=== PATIENT | male | born 1990 | race Native Hawaiian/Other Pacific Islander ===

== ENCOUNTER 2016-10-27 16:03 | Inpatient (IN) | payer OTHER ==
[~2016-10-27] VITALS: Ht 188 cm; Wt 64.5 kg
[2016-10-27 16:05] VITALS: BP 120/75; PULSE 87; RESP 18; O2SAT 100
[2016-10-27] MEDS ORDERED: SODIUM CHLOR 0.9% 1000 ML INJ 1,000 ML IV ONE ×3 (16:15→18:00)
[2016-10-27] MEDS ORDERED: SODIUM CHLORIDE 0.9% FLUSH 10 ML FLUSH IVF PRN (16:15)
--- NOTE | 2016-10-27 16:30 | PD ---
HPI Chief Complaint: Altered Mental Status Time Seen by Provider: 16:09 Travel History International Travel<30 days: No Contact w/Intl Traveler<30days: No Traveled to known affect area: No History of Present Illness HPI 26-year-old male came to the emergency room with history of feeling not good and asking his friends to call 911. Patient says that he is here on a spring break and last night he partied and drank a lot of alcohol. This morning when he woke up he was not feeling good and felt these painful contractions all over his body. As per EMS he was tachycardic rate and having carpopedal spasms from what it looked like. He was awake and answering questions appropriately. EMS requested on the radio to give him a milligram of IV Ativan which I had approved. When patient arrived he was little groggy but painful contractions had stopped. He was answering questions appropriately. He denied doing any drugs. [facility] Past Medical History Narrative Medical List of his past medical, surgical, social and family history was reviewed from the nursing note. Tetanus Vaccination: Never Vaccinated Influenza Vaccination: No Past Surgical History Surgical History: No Previous Surgery Social History Alcohol Use: Yes Tobacco Use: No Substance Use: No Allergies-Medications (Allergen,Severity, Reaction): Coded Allergies: No Known Allergies (Unverified , 10/27/16) Comments No known drug allergies. Narrative Medication Awaiting for the nurse to do minute reconciliation. Review of Systems Except as stated in HPI: all other systems reviewed are Neg Physical Exam Narrative GENERAL: Groggy, wakes up on calling his name, answering questions appropriately , no obvious distress SKIN: Warm and dry. HEAD: Atraumatic. Normocephalic. EYES: Pupils equal and round. No scleral icterus. No injection or drainage. ENT: No nasal bleeding or discharge. Mucous membranes dry. NECK: Trachea midline. No JVD. CARDIOVASCULAR: Regular rate and rhythm. No murmur appreciated. RESPIRATORY: No accessory muscle use. Clear to auscultation. Breath sounds equal bilaterally. GASTROINTESTINAL: Abdomen soft, non-tender, nondistended. Hepatic and splenic margins not palpable. MUSCULOSKELETAL: No obvious deformities. No clubbing. No cyanosis. No edema. NEUROLOGICAL: Awake and alert. No obvious cranial nerve deficits. Motor grossly within normal limits. Normal speech. PSYCHIATRIC: Appropriate mood and affect; insight and judgment normal. Data Data Last Documented VS Orders Electrocardiogram (10/27/16 16:09) Ammonia (10/27/16 16:09) Complete Blood Count With Diff (10/27/16 16:09) Comprehensive Metabolic Panel (10/27/16 16:09) Creatine Kinase (Cpk) (10/27/16 16:09) Prothrombin Time / Inr (Pt) (10/27/16 16:09) Act Partial Throm Time (Ptt) (10/27/16 16:09) Troponin I (10/27/16 16:09) Thyroid Stimulating Hormone (10/27/16 16:09) Lactic Acid Sepsis Protocol (10/27/16 16:09) Urinalysis - C+S If Indicated (10/27/16 16:09) Blood Culture (10/27/16 16:09) Chest, Single Ap (10/27/16 16:09) Ct Brain W/O Iv Contrast(Rout) (10/27/16 16:09) Blood Glucose (10/27/16 16:09) Ecg Monitoring (10/27/16 16:09) Iv Access Insert/Monitor (10/27/16 16:09) Oximetry (10/27/16 16:09) Sodium Chloride 0.9% Flush (Ns Flush) (10/27/16 16:15) Drug Screen, Random Urine (10/27/16 16:09) Alcohol (Ethanol) (10/27/16 16:09) Sodium Chlor 0.9% 1000 Ml Inj (Ns 1000 M (10/27/16 16:15) CKMB (10/27/16 16:36) CKMB% (10/27/16 16:36) Sodium Chlor 0.9% 1000 Ml Inj (Ns 1000 M (10/27/16 18:00) Levetiracetam 1000 Mg Inj (Keppra 1000 M (10/27/16 18:00) Sodium Chlor 0.9% 1000 Ml Inj (Ns 1000 M (10/27/16 18:00) Admit Order (Ed Use Only) (10/27/16 18:15) Admit To Inpatient (10/27/16 ) Vital Signs (Adult) Q4H (10/27/16 18:14) Neuro Checks Q4H (10/27/16 18:14) Activity Oob With Assistance (10/27/16 18:14) Diet Regular Basic (10/27/16 Dinner) Sodium Chlor 0.9% 1000 Ml Inj (Ns 1000 M (10/27/16 18:14) Sodium Chloride 0.9% Flush (Ns Flush) (10/27/16 18:15) Sodium Chloride 0.9% Flush (Ns Flush) (10/27/16 21:00) Acetaminophen (Tylenol) (10/27/16 18:15) Ondansetron Inj (Zofran Inj) (10/27/16 18:15) Magnesium Hydroxide Liq (Milk Of Magnesi (10/27/16 18:15) Temazepam (Restoril) (10/27/16 21:00) Basic Metabolic Panel (Bmp) (10/28/16 06:00) Complete Blood Count With Diff (10/28/16 06:00) Scd Bilateral/Knee High KENNETH.BID (10/27/16 18:14) Naloxone Inj (Narcan Inj) (10/27/16 18:15) Inpatient Certification (10/27/16 ) Consult Neurology (10/27/16 ) Eeg Study (10/27/16 ) Labs MDM Medical Decision Making Medical Screen Exam Complete: Yes Emergency Medical Condition: Yes Medical Record Reviewed: Yes Interpretation(s) Twelve-lead EKG was reviewed by me. Normal sinus rhythm, normal axis, nonspecific ST-T wave changes. Heart rate of 82 bpm. Differential Diagnosis Dehydration, electrolyte abnormality, alcohol intoxication Narrative Course 5:39 PM awaiting for the blood test results. Patient was given 1 L of IV fluid bolus. Chest x-ray and CAT scan of his head are within normal limits. His friends are here and they witnessed this and were concerned that he had a seizure. 5:58 PM blood test results are back. Patient's CPK and lactic acid are elevated. There is a good chance based on these test results he may have had a seizure. The nurse was told by his friends were in the room that he had another brief episode of similar shaking. I have ordered another liter of IV fluid bolus and 1 g of Keppra IV. I would like to admit this patient for neurology consult and EEG. Critical Care Narrative Aggregate critical care time was 30 minutes. Time to perform other separately billable procedures was not included in the critical care time. My time did not include minutes spent treating any other patients simultaneously or on activities that did not directly contribute to the patient's treatment. The services I provided to this patient were to treat and/or prevent clinically significant deterioration that could result in: New-onset seizure, rhabdomyolysis, altered mental status I provided critical care services requiring my management, as noted below: Chart data review, documentation time, medication orders and management, vital sign assessments/reviewing monitor data, ordering and reviewing lab tests, ordering and interpreting/reviewing x-rays and diagnostic studies, care of the patient and discussion of the patient with the admitting physicians. Procedures EKG Prior to Arrival: No Diagnosis Primary Impression: New onset seizure Additional Impressions: Rhabdomyolysis Qualified Code: M62.82 - Non-traumatic rhabdomyolysis Altered mental status Qualified Code: R40.0 - Somnolence Admitting Information Admitting Physician Requests: Admit Adriel Carroll MD Oct 27, 2016 16:30 Anion Gap 7 MEQ/L Blood Urea Nitrogen 13 MG/DL Creatinine 0.90 MG/DL Estimat Glomerular Filtration 102 ML/MIN Rate Random Glucose 124 MG/DL Lactic Acid Level 2.2 mmol/L Calcium Level 7.7 MG/DL Total Bilirubin 0.4 MG/DL Aspartate Amino Transf 56 U/L (AST/SGOT) Alanine Aminotransferase 36 U/L (ALT/SGPT) Alkaline Phosphatase 126 U/L Total Creatine Kinase 1975 U/L Creatine Kinase MB 10.3 NG/ML Creatine Kinase MB % 0.5 % Troponin I LESS THAN 0.02 NG/ML Total Protein 6.5 GM/DL Albumin 3.6 GM/DL Thyroid Stimulating Hormone 0.912 uIU/ML 3rd Gen Ethyl Alcohol Level LESS THAN 3 MG/DL Ammonia 83 MCMOL/L Urine Color YELLOW Urine Turbidity CLEAR Urine pH 6.0 Urine Specific [place] 1.023 Urine Protein TRACE mg/dL Urine Glucose (UA) 1000 mg/dL Urine Ketones 10 mg/dL Urine Occult Blood NEG Urine Nitrite NEG Urine Bilirubin NEG Urine Urobilinogen 2.0 MG/DL Urine Leukocyte Esterase NEG Urine RBC 1 /hpf Urine WBC 2 /hpf Urine Mucus FEW /lpf Microscopic Urinalysis Comment CATH-CULT NOT IND Urine Opiates Screen NEG Urine Barbiturates Screen NEG Urine Amphetamines Screen NEG Urine Benzodiazepines Screen NEG Urine Cocaine Screen NEG Urine Cannabinoids Screen NEG MDM Medical Decision Making Medical Screen Exam Complete: Yes Emergency Medical Condition: Yes Medical Record Reviewed: Yes Interpretation(s) Twelve-lead EKG was reviewed by me. Normal sinus rhythm, normal axis, nonspecific ST-T wave changes. Heart rate of 82 bpm. Differential Diagnosis Dehydration, electrolyte abnormality, alcohol intoxication Narrative Course 5:39 PM awaiting for the blood test results. Patient was given 1 L of IV fluid bolus. Chest x-ray and CAT scan of his head are within normal limits. His friends are here and they witnessed this and were concerned that he had a seizure. 5:58 PM blood test results are back. Patient's CPK and lactic acid are elevated. There is a good chance based on these test results he may have had a seizure. The nurse was told by his friends were in the room that he had another brief episode of similar shaking. I have ordered another liter of IV fluid bolus and 1 g of Keppra IV. I would like to admit this patient for neurology consult and EEG. Critical Care Narrative Aggregate critical care time was 30 minutes. Time to perform other separately billable procedures was not included in the critical care time. My time did not include minutes spent treating any other patients simultaneously or on activities that did not directly contribute to the patient's treatment. The services I provided to this patient were to treat and/or prevent clinically significant deterioration that could result in: New-onset seizure, rhabdomyolysis, altered mental status I provided critical care services requiring my management, as noted below: Chart data review, documentation time, medication orders and management, vital sign assessments/reviewing monitor data, ordering and reviewing lab tests, ordering and interpreting/reviewing x-rays and diagnostic studies, care of the patient and discussion of the patient with the admitting physicians. Procedures EKG Prior to Arrival: No Diagnosis Primary Impression: New onset seizure Additional Impressions: Rhabdomyolysis Qualified Code: M62.82 - Non-traumatic rhabdomyolysis Altered mental status Qualified Code: R40.0 - Somnolence Admitting Information Admitting Physician Requests: it Adriel Carroll MD Oct 27, 2016 16:30
--- NOTE | 2016-10-27 16:38 | RADRPT ---
EXAM DATE/TIME: 10/27/2016 16:10 [facility] COMPARISON: No previous studies available for comparison. INDICATIONS : Syncope. MEDICAL HISTORY : None. SURGICAL HISTORY : None. ENCOUNTER: Initial ACUITY: 1 day PAIN SCORE: 0/10 LOCATION: Bilateral upper chest FINDINGS: A single view of the chest demonstrates the lungs to be symmetrically aerated without evidence of mas s, infiltrate or effusion. The cardiomediastinal contours are unremarkable. Osseous structures are intact. CONCLUSION: No acute cardiopulmonary process. Carlos Eduardo Bose MD on October 27, 2016 at 16:36 Board Certified Radiologist. This report was verified electronically.
--- NOTE | 2016-10-27 16:47 | RADRPT ---
EXAM DATE/TIME: 10/27/2016 16:41 [facility] COMPARISON: No previous studies available for comparison. INDICATIONS : Altered mental status. RADIATION DOSE: 33.87 CTDIvol (mGy) MEDICAL HISTORY : Non-responsive. SURGICAL HISTORY : Non-responsive. ENCOUNTER: Initial ACUITY: 1 day PAIN SCALE: Non-responsive LOCATION: cranial TECHNIQUE: Multiple contiguous axial images were obtained of the head. Using automated exposure control and adj ustment of the mA and/or kV according to patient size, radiation dose was kept as low as reasonably a chievable to obtain optimal diagnostic quality images. FINDINGS: CEREBRUM: The ventricles are normal for age. No evidence of midline shift, mass lesion, hemorrhage or acute in farction. No extra-axial fluid collections are seen. POSTERIOR FOSSA: The cerebellum and brainstem are intact. The 4th ventricle is midline. The cerebellopontine angle i s unremarkable. EXTRACRANIAL: The visualized portion of the orbits is intact. SKULL: The calvaria is intact. No evidence of skull fracture. CONCLUSION: Normal examination. Ezra Meehan MD on October 27, 2016 at 16:45 Board Certified Radiologist. This report was verified electronically.
[2016-10-27 17:05] LABS: AUTOMATED NEUTROPHIL # 7.8 TH/MM3 (1.8-7.7); BASOPHIL % 0.4 % (0.0-2.0); EOSINOPHIL % 0.4 % (0.0-4.0); HEMATOCRIT 41.5 % (39.0-51.0); HEMO FLAGS DIFF FINAL; LYMPH % 9.3 % (9.0-44.0); LYMPHOCYTE # 0.9 TH/MM3 (1.0-4.8); MEAN CELL VOLUME 88.4 FL (80.0-100.0); MEAN CORPUSCULAR HEMOGLOBIN 31.2 PG (27.0-34.0); MEAN CORPUSCULAR HGB CONC 35.3 % (32.0-36.0); MONO % 6.9 % (0.0-8.0); PLATELET COUNT 211 TH/MM3 (150-450); RED BLOOD COUNT 4.69 MIL/MM3 (4.50-5.90); RED CELL DISTRIBUTION WIDTH 13.9 % (11.6-17.2); WHITE BLOOD COUNT 9.4 TH/MM3 (4.0-11.0)
[2016-10-27 17:25] LABS: APTT (PATIENT) 25.8 SEC (24.3-30.1); PROTHROMBIN TIME - PATIENT 10.9 SEC (9.8-11.6)
[2016-10-27 17:26] LABS: ANION GAP 7 MEQ/L (5-15); AST (GOT) 56 U/L (15-37); BICARBONATE 29.1 MEQ/L (21.0-32.0); BLOOD UREA NITROGEN 13 MG/DL (7-18); CHLORIDE 103 MEQ/L (98-107); GLOMERULAR FILTRATION RATE 102 ML/MIN (>89); SODIUM (NA) 139 MEQ/L (136-145)
[2016-10-27 17:39] LABS: AMPHETAMINE, URINE NEG (NEG); BARBITURATES, URINE NEG (NEG); COCAINE, URINE NEG (NEG)
[2016-10-27 17:41] LABS: ALKALINE PHOSPHATASE 126 U/L (45-117); ALT (GPT) 36 U/L (12-78); CREATINE KINASE 1975 U/L (39-308); TOTAL BILIRUBIN ADULT 0.4 MG/DL (0.2-1.0)
[2016-10-27 17:42] LABS: BLOOD, URINE NEG (NEG); GLUCOSE,URINE 1000 mg/dL (NEG); KETONE, URINE 10 mg/dL (NEG); MUCUS URINE FEW /lpf (OCC); NITRITE,URINE NEG (NEG); URINE COLOR YELLOW (YELLW/STRAW)
[2016-10-27 17:43] LABS: COMMENT (UR) CATH-CULT NOT IND; CULTURE IF INDICATED CATH CULTURE NOT IND
[2016-10-27 17:55] LABS: CKMB 10.3 NG/ML (0.5-3.6)
[2016-10-27] MEDS ORDERED: levETIRAcetam 1000 MG INJ 100 ML IV ONE (18:00)
[2016-10-27] MEDS: SODIUM CHLOR 0.9% 1000 ML INJ 1,000 ML IV SCH (18:14)
[2016-10-27] MEDS ORDERED: NALOXONE HCL 0.4 MG/ML AMP IV PRN (18:15)
[2016-10-27] MEDS ORDERED: ONDANSETRON HCL 4 MG/2 ML VIAL IVP PRN (18:15)
[2016-10-27] MEDS ORDERED: MAGNESIUM HYDROXIDE SUSP 30 ML CUP PO PRN (18:15)
[2016-10-27] MEDS ORDERED: ACETAMINOPHEN 325 MG TAB PO PRN (18:15)
[2016-10-27] MEDS ORDERED: SODIUM CHLORIDE 0.9% FLUSH 10 ML FLUSH IV FLUSH PRN (18:15)
[2016-10-27] MEDS ORDERED: LORazepam 2 MG/ML VIAL IV PUSH PRN ×2 (18:30)
[2016-10-27 18:53] LABS: LACTIC ACID GHOST NOT REPORTABLE
[2016-10-27] MEDS: FOLIC ACID 1 MG TAB PO SCH (19:20)
[2016-10-27 19:26] VITALS: BP 120/84; PULSE 82; RESP 18; O2SAT 99
[2016-10-27] MEDS: THIAMINE INJ 100 MG in SODIUM CHLORIDE 0.9% INJ 100 ML IV SCH (20:07)
[2016-10-27 20:25] VITALS: BP 128/78; PULSE 107; RESP 16; O2SAT 100
[2016-10-27] MEDS: SODIUM CHLORIDE 0.9% FLUSH 10 ML FLUSH IV FLUSH SCH (20:54)
[2016-10-27] MEDS ORDERED: TEMAZEPAM 15 MG CAP PO PRN (21:00)
[2016-10-27 21:30] VITALS: BP 110/64; PULSE 81; RESP 20; TEMP 97.1; O2SAT 100
--- NOTE | 2016-10-27 22:32 | HHI.HP ---
[facility] Unknown Admission Diagnosis new-onset seizure, rhabdomyolysis, altered mental status Diagnoses: (1) New onset seizure (2) Rhabdomyolysis Chief Complaint: Seizure activity Travel History International Travel<30 Days: No Contact w/Intl Traveler <30 Da: No Traveled to Known Affected Are: No History of Present Illness Mr. Gandhi is a 26 year-old male with no significant medical history who presented to the ER after experiencing painful body contractions and asking friends to call 911. He is here for spring break from college in [place], [place] and has been drinking a lot of alcohol. He had muscle spasms while en route and Ativan 1 mg IV was given enroute to ER. There has been seizure activity in ER and the patient is admitted. The patient is seen in his hospital room. He is alert and interactive. He says he has been drinking heavily every day since he arrived in [place] about one week ago. He said he ended up in the hospital on 10/26/2016 overnight after drinking heavily with friends (?[facility] He was discharged the next morning and went home and ate breakfast. After breakfast, he started shaking and was stiff. He told his friend called the ambulance and they did. He admits to binge drinking while here in [facility] and also drinking regularly when he is in school because he states it is very hard to get alcohol where he is originally from in [place]. He says he is enjoying the freedom to drink here in the before returning home. He denies any recent fever, chills, breathing problems, chest pain, abdominal pain, diarrhea, nausea, vomiting, black or tarry stools. He denies any significant medical history or prior surgeries. He denies any family history of medical problems. Review of Systems Except as stated in HPI: all other systems reviewed are Neg Past Family Social History Past Medical History Denies . Past Surgical History Denies . Reported Medications Denies taking any home medications . Allergies: Coded Allergies: No Known Allergies (Unverified , 10/27/16) Active Ordered Medications Current Medications Sodium Chloride 2 ml 2 ml UNSCH PRN IVF FLUSH AFTER USING IV ACCESS; Start at 16:15 Sodium Chloride 1,000 ml @ 999 mls/hr BOLUS ONCE IV Last administered on 10/27 17:18; Start 10/27/16 at 16:15; Stop 10/27/16 at 17:15; Status DC Sodium Chloride 1,000 ml @ 999 mls/hr BOLUS ONCE IV Last administered on 10/27 20:07; Start 10/27/16 at 18:00; Stop 10/27/16 at 19:00; Status DC Levetriacetam 100 ml @ 400 mls/hr BOLUS ONCE IV Last administered on 19:35; Start 10/27/16 at 18:00; Stop 10/27/16 at 18:14; Status DC Sodium Chloride 1,000 ml @ 999 mls/hr BOLUS ONCE IV Last administered on 10/27 19:20; Start 10/27/16 at 18:00; Stop 10/27/16 at 19:00; Status DC Sodium Chloride (NS 1000 ml Inj) 1,000 ml @ 200 mls/hr Q5H IV ; Start 10/27/16 at 18:14 Sodium Chloride (NS Flush) 2 ml UNSCH PRN IV FLUSH FLUSH AFTER USING IV ACCESS ; Start 10/27/16 at 18:15 Sodium Chloride (NS Flush) 2 ml BID IV FLUSH ; Start 10/27/16 at 21:00 Acetaminophen (Tylenol) 650 mg Q4H PRN PO Fever, headache, Pain 1-4; Start at 18:15 Ondansetron HCl (Zofran Inj) 4 mg Q6H PRN IVP NAUSEA OR VOMITING; Start at 18:15 Magnesium Hydroxide (Milk Of Magnesia Liq) 30 ml Q12H PRN PO CONSTIPATION; Start 10/27/16 at 18:15 Temazepam (Restoril) 15 mg HS PRN PO INSOMNIA; Start 10/27/16 at 21:00 Naloxone HCl (Narcan Inj) 0.4 mg UNSCH PRN IV SEE LABEL COMMENTS; Start at 18:15 Lorazepam (Ativan Inj) 1 mg Q15M PRN IV PUSH Seizure, severe withdrawal; Start 10/27/16 at 18:30 Lorazepam (Ativan Inj) 1 mg Q4H PRN IV PUSH withdrawal; Start 10/27/16 at 18:30 Folic Acid 1 mg 1 mg DAILY PO Last administered on 10/27/16 19:20; Start 10/27 at 18:30 Thiamine HCl/ Sodium Chloride (Thiamine Inj/NS Inj) 101 ml @ 101 mls/hr DAILY IV Last administered on 10/27/16 20:07; Start 10/27/16 at 20:00; Stop at 19:59 . Family History Denies any significant family medical illnesses . Social History Tobacco: Denies Alcohol: See history of present illness Illicit Drugs: Denies . Physical Exam Vital Signs Vital Signs Date Time Temp Pulse Resp B/P Pulse Ox O2 Delivery O2 Flow Rate FiO2 10/27/16 21:30 97.1 81 20 110/64 100 10/27/16 20:25 107 16 128/78 100 Nasal Cannula 2 10/27/16 19:26 82 18 120/84 99 Room Air 10/27/16 16:05 87 18 120/75 100 Physical Exam GENERAL: This is a thin young male patient, in no apparent distress. Ammonia odor detectable. SKIN: No rashes, ecchymoses or lesions. Cool and dry. HEAD: Atraumatic. Normocephalic. EYES: No scleral icterus. No injection or drainage. ENT: Nose without bleeding, purulent drainage. NECK: Trachea midline. No JVD or lymphadenopathy. CARDIOVASCULAR: Regular rate and rhythm without murmurs, gallops, or rubs. RESPIRATORY: Clear to auscultation. Breath sounds equal bilaterally. No wheezes , rales, or rhonchi. GASTROINTESTINAL: Abdomen soft, non-tender, nondistended. No guarding. MUSCULOSKELETAL: Extremities without clubbing, cyanosis, or edema. No calf tenderness. NEUROLOGICAL: Awake and alert. Motor and sensory grossly within normal limits. Normal speech. . . Laboratory Laboratory Tests Test 10/27/16 10/27/16 10/27/16 10/27/16 16:36 17:04 17:13 19:18 White Blood Count 9.4 Red Blood Count 4.69 Hemoglobin 14.6 Hematocrit 41.5 Mean Corpuscular Volume 88.4 Mean Corpuscular Hemoglobin 31.2 Mean Corpuscular Hemoglobin 35.3 Concent Red Cell Distribution Width 13.9 Platelet Count 211 Mean Platelet Volume 9.3 Neutrophils (%) (Auto) 83.0 Lymphocytes (%) (Auto) 9.3 Monocytes (%) (Auto) 6.9 Eosinophils (%) (Auto) 0.4 Basophils (%) (Auto) 0.4 Neutrophils # (Auto) 7.8 Lymphocytes # (Auto) 0.9 Monocytes # (Auto) 0.6 Eosinophils # (Auto) 0.0 Basophils # (Auto) 0.0 CBC Comment DIFF FINAL Differential Comment Prothrombin Time 10.9 Prothromb Time International 1.0 Ratio Activated Partial 25.8 Thromboplast Time Sodium Level 139 Potassium Level 4.0 Chloride Level 103 Carbon Dioxide Level 29.1 Anion Gap 7 Blood Urea Nitrogen 13 Creatinine 0.90 Estimat Glomerular Filtration 102 Rate Random Glucose 124 Lactic Acid Level 2.2 0.8 Calcium Level 7.7 Total Bilirubin 0.4 Aspartate Amino Transf 56 (AST/SGOT) Alanine Aminotransferase 36 (ALT/SGPT) Alkaline Phosphatase 126 Total Creatine Kinase 1975 Creatine Kinase MB 10.3 Creatine Kinase MB % 0.5 Troponin I LESS THAN 0.02 Total Protein 6.5 Albumin 3.6 Thyroid Stimulating Hormone 0.912 3rd Gen Ethyl Alcohol Level LESS THAN 3 Ammonia 83 Urine Color YELLOW Urine Turbidity CLEAR Urine pH 6.0 Urine Specific [place] 1.023 Urine Protein TRACE Urine Glucose (UA) 1000 Urine Ketones 10 Urine Occult Blood NEG Urine Nitrite NEG Urine Bilirubin NEG Urine Urobilinogen 2.0 Urine Leukocyte Esterase NEG Urine RBC 1 Urine WBC 2 Urine Mucus FEW Microscopic Urinalysis Comment CATH-CULT NOT IND Urine Opiates Screen NEG Urine Barbiturates Screen NEG Urine Amphetamines Screen NEG Urine Benzodiazepines Screen NEG Urine Cocaine Screen NEG Urine Cannabinoids Screen NEG Date/Time Procedure Status Source Growth 10/27/16 16:40 Aerobic Blood Culture Received Blood Peripheral Pending 10/27/16 16:40 Anaerobic Blood Culture Received Blood Peripheral Pending Result Diagram: 10/27/16 1636 10/27/16 1636 Imaging Last Impressions Head CT 10/27/16 1609 Signed Impressions: Service Date/Time: Thursday, October 27, 2016 16:41 - CONCLUSION: Normal examination. Ezra Meehan MD Chest X-Ray 10/27/16 1609 Signed Impressions: Service Date/Time: Thursday, October 27, 2016 16:10 - CONCLUSION: No acute cardiopulmonary process. Carlos Eduardo Bose MD . Assessment and Plan Problem List: (1) New onset seizure ICD Code: R56.9 Status: Acute (2) Rhabdomyolysis ICD Code: M62.82 Status: Acute (3) Hyperammonemia ICD Code: E72.20 Status: Acute (4) Transaminitis ICD Code: R74.0 Status: Acute (5) Alcohol withdrawal ICD Code: F10.239 Status: Acute Assessment and Plan Mr. Gandhi is a 26 year-old male with suspected new onset of seizure activity. New Onset Seizures - suspect related to alcohol withdrawal - Neurology consultation - EEG follow results - ETOH level less than three and urine drug screen negative - Lorazepam 1 mg IV q15 minutes for seizures, severe withdrawal symptoms - Neurochecks q4h, VS q4h - Seizure precautions Rhabdomyolysis - CK elevated at 1975, CK-MB elevated at 10.3, CK-MB % normal at 0.5 - Lactic acid initially 2.2, repeat 0.8 less than 3 hours later - Received 3 liters total NS IVF boluses in ER - NS at 200 cc/hr - Recheck CK in a.m.; follow trends Hyperammonemia - Ammonia level 83 on admission - Recheck ammonia level in a.m. Transaminitis - AST elevated at 56 - ALT normal at 36 - Suspect will return to normal while not drinking alcohol Potential for alcohol withdrawal - Lorazepam 1 mg IV q4h PRN withdrawal symptoms - Thiamine 100 mg IV daily - discussed harmful effects of alcohol with the patient; cautioned regarding continued use of alcohol due to deleterious effects and potential for addiction DVT prophylaxis - SCDs Written by Maxine Tsang, acting as scribe for Dr. Mendoza on 10/27/16 at 22:06. .This note was transcribed by scribe [Maxine Tsang]. I, Dr. Quiana Mendoza personally performed the history, physical exam, and medical decision making; and confirmed the accuracy of the information in the transcribed note. Authenticated by Dr. Quiana Mendoza on 10/27/16 at 22:06. Discussed Condition With ER physician, RN, and patient . Physician Certification 2 Midnight Certification Type: Admission for Inpatient Services Order for Inpatient Services The services are ordered in accordance with Medicare regulations or non- Medicare payer requirements, as applicable. In the case of services not specified as inpatient-only, they are appropriately provided as inpatient services in accordance with the 2-midnight benchmark. Estimated LOS (days): 3 days is the estimated time the patient will need to remain in the hospital, assuming treatment plan goals are met and no additional complications. Post-Hospital Plan: Home Problem Qualifiers (1) Rhabdomyolysis: Qualified Code: M62.82 - Non-traumatic rhabdomyolysis Maxine Tsang Oct 27, 2016 22:32 Quiana Mendoza MD December 06, 2016 07:07
[2016-10-28] VITALS (7 sets, daily range): BP systolic 110–150; BP diastolic 51–84; PULSE 69–91; RESP 16–24; TEMP 96.6–99.4; O2SAT 98–100
[2016-10-28] MEDS: SODIUM CHLOR 0.9% 1000 ML INJ 1,000 ML IV SCH ×5 (04:17→19:17)
[2016-10-28] MEDS: SODIUM CHLORIDE 0.9% FLUSH 10 ML FLUSH IV FLUSH SCH ×2 (09:00→21:00)
[2016-10-28 09:04] LABS: AUTOMATED NEUTROPHIL # 4.7 TH/MM3 (1.8-7.7); BASOPHIL # 0.1 TH/MM3 (0-0.2); BASOPHIL % 0.9 % (0.0-2.0); EOSINOPHIL # 0.1 TH/MM3 (0-0.4); HEMATOCRIT 43.2 % (39.0-51.0); HEMO FLAGS DIFF FINAL; LYMPHOCYTE # 1.6 TH/MM3 (1.0-4.8); MEAN CELL VOLUME 91.3 FL (80.0-100.0); MEAN CORPUSCULAR HEMOGLOBIN 30.3 PG (27.0-34.0); MEAN CORPUSCULAR HGB CONC 33.2 % (32.0-36.0); MONO % 9.5 % (0.0-8.0); NEUT % 65.6 % (16.0-70.0); PLATELET COUNT 181 TH/MM3 (150-450); RED BLOOD COUNT 4.73 MIL/MM3 (4.50-5.90); RED CELL DISTRIBUTION WIDTH 14.2 % (11.6-17.2); WHITE BLOOD COUNT 7.1 TH/MM3 (4.0-11.0)
[2016-10-28 09:34] LABS: BICARBONATE 26.5 MEQ/L (21.0-32.0); POTASSIUM 3.9 MEQ/L (3.5-5.1)
[2016-10-28 10:07] LABS: CKMB 7.2 NG/ML (0.5-3.6)
[2016-10-28] MEDS: FOLIC ACID 1 MG TAB PO SCH (10:18)
[2016-10-28] MEDS: THIAMINE INJ 100 MG in SODIUM CHLORIDE 0.9% INJ 100 ML IV SCH (10:19)
--- NOTE | 2016-10-28 11:16 | HHI.PR ---
Subjective Remarks Patient says he is feeling much better. No tremors. No pain . No fever or chills./ No n/v/d/c. Objective Vitals Vital Signs Date Time Temp Pulse Resp B/P Pulse Ox O2 Delivery O2 Flow Rate FiO2 10/28/16 08:40 96.6 80 24 114/64 98 10/28/16 04:00 97.4 86 18 120/55 99 10/28/16 00:00 99.4 69 20 110/51 100 10/27/16 21:30 97.1 81 20 110/64 100 10/27/16 20:25 107 16 128/78 100 Nasal Cannula 2 10/27/16 19:26 82 18 120/84 99 Room Air 10/27/16 16:05 87 18 120/75 100 I/O 10/27/16 10/27/16 10/27/16 10/28/16 10/28/16 10/28/16 07:00 15:00 23:00 07:00 15:00 23:00 Intake Total 952 ml Balance 952 ml Intake IV Total 952 ml # Voids 1 Result Diagram: 10/28/16 0812 10/28/16 0812 Imaging Last Impressions Head CT 10/27/16 1609 Signed Impressions: Service Date/Time: Thursday, October 27, 2016 16:41 - CONCLUSION: Normal examination. Ezra Meehan MD Chest X-Ray 10/27/16 1609 Signed Impressions: Service Date/Time: Thursday, October 27, 2016 16:10 - CONCLUSION: No acute cardiopulmonary process. Carlos Eduardo Bose MD Objective Remarks GENERAL: This is a thin young male patient, in no apparent distress. Ammonia odor detectable. SKIN: No rashes, ecchymoses or lesions. Cool and dry. HEAD: Atraumatic. Normocephalic. EYES: No scleral icterus. No injection or drainage. ENT: Nose without bleeding, purulent drainage. NECK: Trachea midline. No JVD or lymphadenopathy. CARDIOVASCULAR: Regular rate and rhythm without murmurs, gallops, or rubs. RESPIRATORY: Clear to auscultation. Breath sounds equal bilaterally. No wheezes , rales, or rhonchi. GASTROINTESTINAL: Abdomen soft, non-tender, nondistended. No guarding. MUSCULOSKELETAL: Extremities without clubbing, cyanosis, or edema. No calf tenderness. NEUROLOGICAL: Awake and alert. Motor and sensory grossly within normal limits. Normal speech. A/P Problem List: (1) New onset seizure ICD Code: R56.9 Status: Acute (2) Rhabdomyolysis ICD Code: M62.82 Status: Acute (3) Hyperammonemia ICD Code: E72.20 Status: Acute (4) Transaminitis ICD Code: R74.0 Status: Acute (5) Alcohol withdrawal ICD Code: F10.239 Status: Acute Assessment and Plan Mr. Gandhi is a 26 year-old male with suspected new onset of seizure activity. New Onset Seizures - suspect related to alcohol withdrawal Neurology consultation, appreciate recommendations EEG follow results ETOH level less than three and urine drug screen negative Lorazepam 1 mg IV q15 minutes for seizures, severe withdrawal symptoms Neurochecks q4h, VS q4h Seizure precautions Rhabdomyolysis CK elevated at 1975 on admission, trending down but not significantly. Patient wants to go home , will repeat later today. Repeat in the afternoon CPK is trending up. Give 1 L bolus IVF. CK-MB elevated at 10.3, CK-MB % normal at 0.5. Continue to trend level. Lactic acid initially 2.2, repeat 0.8 less than 3 hours later Received 3 liters total NS IVF boluses in ER Continue NS at 200 cc/hr Recheck CK in a.m.; follow trends Hyperammonemia Ammonia level 83 on admission. Trending down. Recheck ammonia level in a.m. Transaminitis - AST elevated at 56 - ALT normal at 36 - Suspect will return to normal while not drinking alcohol Potential for alcohol withdrawal Lorazepam 1 mg IV q4h PRN withdrawal symptoms Thiamine 100 mg IV daily Counselled. DVT prophylaxis - SCDs Discussed Condition With Patient, nurse DC when improved and cpk level improving Problem Qualifiers (1) Rhabdomyolysis: Qualified Code: M62.82 - Non-traumatic rhabdomyolysis Medina Pritchett MD Oct 28, 2016 11:16
[2016-10-28] MEDS ORDERED: SODIUM CHLOR 0.9% 1000 ML INJ 1,000 ML IV ONE (14:00)
[2016-10-28 17:35] LABS: BICARBONATE 25.5 MEQ/L (21.0-32.0)
[2016-10-28 17:59] LABS: CKMB 6.4 NG/ML (0.5-3.6)
[2016-10-29] VITALS: BP 136/86; PULSE 76; RESP 20; TEMP 96.5; O2SAT 99
[2016-10-29] MEDS: SODIUM CHLOR 0.9% 1000 ML INJ 1,000 ML IV SCH ×3 (00:17→10:17)
[2016-10-29 04:00] VITALS: BP 124/59; PULSE 84; RESP 20; TEMP 97; O2SAT 97
[2016-10-29 07:15] LABS: EOSINOPHIL # 0.2 TH/MM3 (0-0.4); EOSINOPHIL % 3.8 % (0.0-4.0); HEMATOCRIT 41.8 % (39.0-51.0); HEMO FLAGS DIFF FINAL; LYMPH % 33.1 % (9.0-44.0); LYMPHOCYTE # 1.4 TH/MM3 (1.0-4.8); MEAN CELL VOLUME 90.3 FL (80.0-100.0); MEAN CORPUSCULAR HEMOGLOBIN 30.4 PG (27.0-34.0); MEAN CORPUSCULAR HGB CONC 33.7 % (32.0-36.0); MONO % 13.3 % (0.0-8.0); NEUT % 48.8 % (16.0-70.0); PLATELET COUNT 183 TH/MM3 (150-450); RED BLOOD COUNT 4.64 MIL/MM3 (4.50-5.90); RED CELL DISTRIBUTION WIDTH 14.1 % (11.6-17.2); WHITE BLOOD COUNT 4.1 TH/MM3 (4.0-11.0)
--- NOTE | 2016-10-29 07:19 | EKG ---
Date Performed: 10/27/2016 Time Performed: 16:28:53 PTAGE: 26 years EKG: Sinus rhythm NORMAL ECG NO PREVIOUS TRACING DOCTOR: David Pabon Interpretating Date/Time 10/29/2016 07:17:10
--- NOTE | 2016-10-29 07:40 | HHI.DS ---
Discharge Summary Admission Date Oct 27, 2016 at 18:17 Discharge Date: Oct 29, 2016 Admitting Diagnosis new-onset seizure, rhabdomyolysis, altered mental status (1) New onset seizure ICD Code: R56.9 Diagnosis: Principal (2) Rhabdomyolysis ICD Code: M62.82 Diagnosis: Principal (3) Hyperammonemia ICD Code: E72.20 Diagnosis: Principal (4) Transaminitis ICD Code: R74.0 Diagnosis: Principal (5) Alcohol withdrawal ICD Code: F10.239 Diagnosis: Principal Procedures none Brief History - From Admission Mr. Gandhi is a 26 year-old male with no significant medical history who presented to the ER after experiencing painful body contractions and asking friends to call 911. He is here for spring break from college in [place], [place] and has been drinking a lot of alcohol. He had muscle spasms while en route and Ativan 1 mg IV was given enroute to ER. There has been seizure activity in ER and the patient is admitted. The patient is seen in his hospital room. He is alert and interactive. He says he has been drinking heavily every day since he arrived in [place] about one week ago. He said he ended up in the hospital on 10/26/2016 overnight after drinking heavily with friends (?[facility] He was discharged the next morning and went home and ate breakfast. After breakfast, he started shaking and was stiff. He told his friend called the ambulance and they did. He admits to binge drinking while here in [facility] and also drinking regularly when he is in school because he states it is very hard to get alcohol where he is originally from in [place]. He says he is enjoying the freedom to drink here in the [place] before returning home. He denies any recent fever, chills, breathing problems, chest pain, abdominal pain, diarrhea, nausea, vomiting, black or tarry stools. He denies any significant medical history or prior surgeries. He denies any family history of medical problems. CBC/BMP: 10/29/16 0653 10/28/16 1606 Significant Findings Laboratory Tests Test 10/27/16 10/27/16 10/27/16 10/28/16 16:36 17:04 17:13 08:12 Neutrophils (%) (Auto) 83.0 % (16.0-70.0) Neutrophils # (Auto) 7.8 TH/MM3 (1.8-7.7) Lymphocytes # (Auto) 0.9 TH/MM3 (1.0-4.8) Random Glucose 124 MG/DL 73 MG/DL (74-106) (74-106) Lactic Acid Level 2.2 mmol/L (0.4-2.0) Calcium Level 7.7 MG/DL 8.2 MG/DL (8.5-10.1) (8.5-10.1) Aspartate Amino Transf 56 U/L (15-37) (AST/SGOT) Alkaline Phosphatase 126 U/L (45-117) Total Creatine Kinase 1975 U/L 1840 U/L (39-308) (39-308) Creatine Kinase MB 10.3 NG/ML 7.2 NG/ML (0.5-3.6) (0.5-3.6) Troponin I LESS THAN 0.02 NG/ML (0.02-0.05) Ammonia 83 MCMOL/L (11-32) Urine Glucose (UA) 1000 mg/dL (NEG) Urine Ketones 10 mg/dL (NEG) Urine Mucus FEW /lpf (OCC) Monocytes (%) (Auto) 9.5 % (0.0-8.0) Blood Urea Nitrogen 5 MG/DL (7-18) Test 10/28/16 10/28/16 10/29/16 13:25 16:06 06:53 Ammonia 57 MCMOL/L (11-32) Blood Urea Nitrogen 5 MG/DL (7-18) Total Creatine Kinase 2809 U/L (39-308) Creatine Kinase MB 6.4 NG/ML (0.5-3.6) Monocytes (%) (Auto) 13.3 % (0.0-8.0) Imaging Last Impressions Head CT 10/27/161608 Signed Impressions: Service Date/Time: Thursday, October 27, 2016 16:41 - CONCLUSION: Normal examination. Ezra Meehan MD Chest X-Ray 10/27/161608 Signed Impressions: Service Date/Time: Thursday, October 27, 2016 16:10 - CONCLUSION: No acute cardiopulmonary process. Carlos Eduardo Bose MD PE at Discharge GENERAL: This is a thin young male patient, in no apparent distress. Ammonia odor detectable. SKIN: No rashes, ecchymoses or lesions. Cool and dry. HEAD: Atraumatic. Normocephalic. EYES: No scleral icterus. No injection or drainage. ENT: Nose without bleeding, purulent drainage. NECK: Trachea midline. No JVD or lymphadenopathy. CARDIOVASCULAR: Regular rate and rhythm without murmurs, gallops, or rubs. RESPIRATORY: Clear to auscultation. Breath sounds equal bilaterally. No wheezes , rales, or rhonchi. GASTROINTESTINAL: Abdomen soft, non-tender, nondistended. No guarding. MUSCULOSKELETAL: Extremities without clubbing, cyanosis, or edema. No calf tenderness. NEUROLOGICAL: Awake and alert. Motor and sensory grossly within normal limits. Normal speech. Pt update on day of discharge Feels good. Has increased urinary out put from IVF. No n/v/d/c. No muscle pain. No tremors. No muscle pain. Counselled excessively regarding EtOH use. Labs improved significantly. Wants to go home. DC today Hospital Course Mr. Gandhi is a 26 year-old male with suspected new onset of seizure activity. New Onset Seizures - most likely related to alcohol withdrawal Neurology consultation, appreciate recommendations EEG follow results ETOH level less than three and urine drug screen negative Lorazepam 1 mg IV q15 minutes for seizures, severe withdrawal symptoms Neurochecks q4h, VS q4h Seizure precautions Rhabdomyolysis CK elevated at 1975 on admission, trending down but not significantly. Patient wants to go home , will repeat later today. Repeat in the afternoon CPK is trending up. Give 1 L bolus IVF. CK-MB elevated at 10.3, CK-MB % normal at 0.5. Continue to trend level. Lactic acid initially 2.2, repeat 0.8 less than 3 hours later Received 3 liters total NS IVF boluses in ER Continue NS at 200 cc/hr Recheck CK in a.m.; follow trends Hyperammonemia Ammonia level 83 on admission. Trending down. Recheck ammonia level in a.m. Transaminitis - AST elevated at 56 - ALT normal at 36 - Suspect will return to normal while not drinking alcohol Potential for alcohol withdrawal Lorazepam 1 mg IV q4h PRN withdrawal symptoms. Did not require BZs during the stay Thiamine 100 mg IV daily Counselled. DVT prophylaxis - SCDs Discussed Condition With Patient, nurse Improved, tolerates food, no pain . kidney function is good,ammonia back to notmal. CPK improved significantly. Was DC home in fairly good condition, to follow up as OP with PCP. Pt Condition on Discharge: Stable Discharge Disposition: Discharge Home Discharge Time: <= 30 minutes Discharge Instructions Activities you can perform: Regular-No Restrictions Follow up Referrals: PCP Follow-up - 2-3 Days with Hannah Bravo MD, Mirela MD Oct 29, 2016 07:40
[2016-10-29 07:51] LABS: BICARBONATE 29.4 MEQ/L (21.0-32.0); POTASSIUM 3.7 MEQ/L (3.5-5.1)
[2016-10-29 08:16] LABS: CKMB 2.5 NG/ML (0.5-3.6)
[2016-10-29 08:26] VITALS: BP 122/80; PULSE 89; RESP 17; TEMP 96.8; O2SAT 92
[2016-10-29] MEDS: SODIUM CHLORIDE 0.9% FLUSH 10 ML FLUSH IV FLUSH SCH (09:00)
[2016-10-29] MEDS: FOLIC ACID 1 MG TAB PO SCH (09:24)
[2016-10-29] MEDS: THIAMINE INJ 100 MG in SODIUM CHLORIDE 0.9% INJ 100 ML IV SCH (09:25)
[2016-10-29 10:00] VITALS: PULSE 77
--- NOTE | 2016-10-29 10:16 | MB ---
cc: MULU POLANCO MD DATE OF CONSULTATION: 10/28/2016 REASON FOR CONSULTATION: 1. Seizure 2. Rhabdomyolysis 3. Altered mental status. HISTORY OF PRESENT ILLNESS Kristina Gandhi is a 26-year-old Eastern male with no significant past medical history presented to the [facility] emergency room after he had what he describes as very painful muscle contractures. He states that he has been drinking a lot of alcohol and this was followed by severe muscle spasms all over, there has been reported seizure activity in the emergency room. The patient states that he has been drinking heavily every day since he arrived in [place], [place] a week ago. The patient denies any history of head injury, history of epilepsy. REVIEW OF SYSTEMS Next a 12-point review of systems is negative except for what is stated in the HPI. PAST MEDICAL HISTORY Noted. Past Surgical History Noncontributory PAST SURGICAL HISTORY Noncontributory CURRENT MEDICATIONS None. ALLERGIES NO KNOWN DRUG ALLERGIES FAMILY HISTORY: Noncontributory. SOCIAL HISTORY: Denies tobacco, or illicit drug use but he drinks alcohol. PHYSICAL EXAMINATION GENERAL: Awake, alert, good historian not under stress HEAD, EYES, EARS, NOSE, AND THROAT: Atraumatic, normocephalic. Intact hearing. NECK: Trachea in the midline. No meningeal irritation. No carotid bruits. CARDIOVASCULAR SYSTEM: Regular rate and rhythm. RESPIRATORY: Clear to auscultation. Breath sounds. No wheezes. MUSCULOSKELETAL: Extremities without clubbing, cyanosis or edema NEUROLOGIC: Awake, alert, oriented to time, person and place. Cranial nerves are grossly intact. No diplopia. No nystagmus. No facial asymmetry. Motor system 5/5 bilateral symmetrical upper and lower extremity normal tone. No abnormal movement. [id number], [id number] are bilateral symmetrical. Sensation intact bilateral symmetrical to pain and temperature. Reflexes 2+ bilateral and symmetrical. Plantar's are bilaterally downgoing. PSYCHOLOGICAL: Psychological normal behavior. No hallucination, good affect and mood. LABORATORY DATA Urine toxicology is negative. Sodium 139, potassium 4, BUN 5, creatinine 0.67, total creatinine kinase was 2,809, hemoglobin white blood cells 7.1, hemoglobin 40.3, MCV 91.3. PT 10.9, INR is 1. RADIOLOGIC: Head CT scan normal with no acute intracranial abnormality. DIAGNOSTIC IMPRESSION 1. Alcohol, seizures, likely related to alcohol. 2. Rhabdomyolysis 3. Hyperlipidemia PLAN 1. Neuro checks q. four hourly. 2. EEG 3. Ativan 1 mg for seizures lasting more than 3 minutes. 4. Seizure and fall precautions. 5. Management of rhabdomyolysis by the attending team. 6. CIWA protocol 7. DVT prophylaxis. 8. GI prophylaxis. 9. No need for antiseizure medication at this time given the alcohol-related seizures, pending Electroencephalogram. Thank you for the opportunity to participate and care for your patient. MD SHANELLE Noyola/spenser /11:48 PM /9:19 AM [email or web address]
--- NOTE | 2016-11-02 23:57 | MG ---
cc: KLEBER ISAAC M.D. Sex: M [id number] Date: 10/28/2016 HISTORY: A 26 year-old man drinking alcohol, seizures. MEDICATIONS: Keppra. DESCRIPTION: Diffuse 5 hertz slowing is seen, at times a 9 hertz symmetric posterior rhythm is seen, 60 microvolts. The patient falls asleep and reaches stage II sleep. Photic stimulation was performed without significant posterior driving. Hyperventilation was performed without change in the background, no epileptiform or seizure activity is noted, there were no hemisphere asymmetries. IMPRESSION Some mild diffuse theta slowing, otherwise unremarkable EEG. MD EMILY Anders/CAMI /11:35 PM /11:54 PM
== END 2016-10-29 12:19 | disposition home or self-care (01) | DRG 101 ==
LOC: NEPE 16:03 → NEDA 18:17 → N05A 21:31
PROVIDERS: ADMIT Hospitalist; ATTEND Hospitalist
DX: R56.9 Unspecified convulsions (principal); E72.20 Disorder of urea cycle metabolism, unspecified; M62.82 Rhabdomyolysis; F10.239 Alcohol dependence with withdrawal, unspecified; R74.0 Nonspecific elevation of levels of transaminase and lactic acid dehydrogenase [LDH]; E78.5 Hyperlipidemia, unspecified
CPT/HCPCS: 70450; 71010; 80048; 80053; 80307; 81001; 82140; 82550; 82552; 83605; 84443; 84484; 85025; 85610; 85730; 87040; 93005; 95819; 96360; J1953; J3411; J7030